=== PATIENT | male | born 1960 | race Caucasian/White ===

== ENCOUNTER 2020-01-05 13:29 | Outpatient (REF) | payer OTHER, SELFPAY ==
--- NOTE | 2020-01-05 13:30 | CT_ITS ---
EXAMINATION: CT CHEST SCREENING CLINICAL INFORMATION: Lung cancer screening COMPARISON: Previous chest CT March 2019 TECHNIQUE: Multidetector volumetric CT imaging of the chest is performed without contrast using low dose technique. Additional 2D coronal and sagittal reformatted images and axial 3D maximum intensity projection (MIP) images are generated on the CT workstation. This CT examination was performed using dose optimization techniques as appropriate, variously including the following: *Automated exposure control *Adjustment of mA and/or kV according to patient size (this includes techniques or standardized protocols for targeted exams where dose is matched to indication/reason for exam; i.e. extremities or head) *Use of iterative reconstruction technique DLP: 55 mGy-cm FINDINGS: LUNGS: There is evidence of severe paraseptal emphysema. There is minimal scarring or subsegmental atelectasis in the right middle lobe. The lungs are otherwise clear. No pulmonary nodule is seen. No endobronchial or endotracheal lesion is seen. There is a small tracheal diverticulum axial image 6 series 3. MEDIASTINUM: There are small mediastinal lymph nodes. No enlarged lymph nodes are seen. The mediastinum is otherwise normal. PLEURA: There is no pleural effusion. No pleural mass or thickening. AXILLA: No lymphadenopathy. UPPER ABDOMEN: There is a 1 cm low-attenuation lesion exophytic to the anterior upper pole of the left kidney that is stable and probably represents a cyst. The gallbladder has been removed. OSSEOUS STRUCTURES: There are mild degenerative changes of the spine. CT/CT lung screening IMPRESSION: Severe paraseptal emphysema. Scarring or subsegmental atelectasis in the right middle lobe. Left renal cyst. ASSESSMENT: Lung-RADS category 1: Negative RECOMMENDATION: Annual low-dose chest CT follow-up recommended.
== END 2020-01-05 13:30 | disposition home or self-care (01) ==
LOC: HO.CT 13:29
PROVIDERS: PCP Nurse Practitioner Family; Visit Provider Surgery
DX: Z87.891 Personal history of nicotine dependence (principal)
CPT/HCPCS: 71250

== ENCOUNTER → 2020-09-08 13:16 | Outpatient (BNVA) | payer OTHER, SELFPAY | PROVIDERS: PCP Nurse Practitioner Family; Referring Provider Nurse Practitioner Family; Visit Provider Surgery | DX: K40.90 Unilateral inguinal hernia, without obstruction or gangrene, not specified as recurrent (principal) | CPT/HCPCS: 99202 ==

== ENCOUNTER 2020-09-19 09:13 | Day surgery (SDC) | payer OTHER, SELFPAY ==
[2020-09-19] VITALS (12 sets, daily range): BP systolic 130–158; BP diastolic 74–90; PULSE 61–74; RESP 6–18; TEMP 36.4–36.8; O2SAT 92–100; BMI 24.4
--- NOTE | 2020-09-19 08:47 | P.CONAN_ITS ---
HPI - Anesthesia Eval Consult details Narrative: 60 yo male patient for Right Inguinal hernia repair PMFSH Active Problems Active Problems: All Active Problems (Updated 08/09/20 @ 16:56 by Rohit santiago [facility]) Right inguinal hernia (Acute) Poison sumac (Acute) Cellulitis (Acute) Neck pain (Acute) Pre-op evaluation (Acute) Past Medical History Medical History COPD (chronic obstructive pulmonary disease) HTN (hypertension) Smoker Family History Family History Father No problems noted. Mother Heart disease Pulmonary embolism History of heart attack Pacemaker Oxygen dependent Brother No problems noted. Brother No problems noted. Brother No problems noted. Sister No problems noted. Sister No problems noted. Daughter No problems noted. Daughter No problems noted. Family history of problems with anesthesia: No Surgical History Surgical History History of back surgery History of carpal tunnel surgery History of knee surgery History of laparoscopic cholecystectomy History of neck surgery History of Problems with Anesthesia: No Social History Social History (Updated 09/19/20 @ 10:59 by Nita Benz) Alcohol intake: current Alcohol intake frequency: a few times a week Patient Tobacco Use Status: Current someday Tobacco user Tobacco use type: Cigarette Years Smoked: 55 Smoked in Last 30 Days: Yes Use of substances other than those prescribed or required for medical reasons: Yes Substance Use Type: Crack/Cocaine and Marijuana Substance Use Type Other:: States last used 5 days ago. States unable to urinate to test. Substance Use Frequency: Weekly Last Used Substance: Days (ago) Last Used Substance Other:: Discussed complications of cocaine use and reaction with anesthesia. Are you DNR?: No Advance Directives: No Advance Directives Information Provided: Yes Narrative Narrative: Discussed complications of cocaine use and anesthetic complications. Patient aware and wishes to proceed. Patient not acutely intoxicated. Will pro ceed. Meds Allergies Allergy/AdvReac Type Severity Reaction Status Date / Time No Known Allergies Allergy Verified 09/19/20 09:19 [No Known Allergies*] Active Medications: Current Medications Generic Name Dose Route Start Last Admin Trade Name Freq PRN Reason Stop Dose Admin Lactated Ringer's 1,000 mls @ 100 mls/hr 09/19/20 09:00 Lr IVCONT .Q10H [facility] Home Medications Medication Instructions Recorded Confirmed Last Taken Type buspirone 15 mg tablet 15 mg PO BID 01/05/20 05/19/20 Unknown History buspirone 7.5 mg tablet 7.5 mg PO BID 01/05/20 05/19/20 Unknown History famotidine 40 mg tablet 40 mg PO DAILY 01/05/20 05/19/20 Unknown History ipratropium 20 mcg-albuterol 100 1 puff INHALATION Q4H 01/05/20 05/19/20 Unknown History mcg/actuation mist for inhalation (Combivent Respimat) ketorolac 0.5 % eye drops drp OPHTHALMIC (EYE) 01/05/20 05/19/20 Unknown History melatonin 5 mg tablet 5 mg PO BEDTIME PRN 01/05/20 05/19/20 Unknown History Exam Exam Date and Time: September 19, 2020 0847 Height,Weight and Vital Signs: Height 5 ft 7 in Weight 70.76 kg Vital Signs Temp Pulse Resp BP Pulse Ox 09/19/20 09:54 98.3 F 65 16 144/80 H 97 Airway Mallampati Class: II TM Dist: >3cm Neck ROM: Full Heart: RRR Lungs: CTAB(Post albuterol nebulizer) Assessment and Plan Assessment Anesthesia Assessment: Anesthesia Plan Discussed and Chart Reviewed Final Anesthetic Review Family History of Problems with Anesthesia: No History of Problems with Anesthesia: No NPO: Yes ASA Class: III Final Preanesthetic Review: No Changes in Pt Med Stat, Meds/Allgs Chart Reviewed, Consent Obtained/Reviewed and Anes Risks/Benef Reviewed Patient Risk: Intermediate Procedure Risk: Low Assessment/Block/Sedation in SS: Assess/Block/Sedation-SS Anesthetic Plan Anesthetic Plan: GA Disposition: Standard PACU
--- NOTE | 2020-09-19 09:43 | PC.NURSE ---
Patient's lung sounds assessed in preop, wheezes throughout, congested cough. Patient has diagnosis of COPD. Light smoker, last cigarette yesterday. SaO2 97% RA. Anesthesia made aware. New order for Nebulizer treatment. Respiratory called and at bedside. Lung sounds assessed post treatment. Lungs clear throughout, no wheezing present.
[2020-09-19] MEDS: Albuterol Sulfate (0.083%) 2.5 MG/3 ML VIAL.NEB INHALE (09:46)
[2020-09-19] MEDS: Lactated Ringers 1,000 ML 100 ML IVCONT (09:55)
--- NOTE | 2020-09-19 10:05 | MHC.SHP ---
Pre-Procedural Eval Section A Date of Service: 09/19/20 The patient is an INPATIENT: No Changes since office visit: Yes Patient answered all questions; No Cold of Flu in the past 2 weeks, No New Medical Problems and No Changes in Medication The History & Physical has been completed within 30 days and I have reviewed it.: Yes Section B Chief Complaint: unilateral inguinal hernia Allergies: Allergies Allergy/AdvReac Type Severity Reaction Status Date / Time No Known Allergies Allergy Verified 09/19/20 09:19 [No Known Allergies*] Plan Diagnosis/Plan: Unchanged I have reviewed the history and physical and performed a pertinent physical examination on my patient. No changes have occurred unless specified.
--- NOTE | 2020-09-19 10:41 | PC.NURSE ---
During preop, patient stated that there has been blood in his urine for years , he has not had this assessed by a doctor. Dr. Benz aware. Patient also stated that he uses cocaine, last time [address] Benz notified and requested a urine toxicology. Dr. Griffith also ordered a Urinalysis as patient has been bleeding when peeing and urine would be obtained anyway. Patient unable to void at this time, ordered fluids wide open. After half of bag administered, patient stated that he could not void and that he felt he would not be able to . Per Dr. Benz okay to proceed with surgery without Urine Tox. Risks discussed with patient at bedside. Dr. Griffith notified that Urinalysis was unable to be obtained.
--- NOTE | 2020-09-19 11:27 | P.OP_ITS ---
Operative Note Operative Note Date of Service: 09/19/20 Narrative: Preoperative diagnosis: Right inguinal hernia Postoperative diagnosis: Same Procedure: Repair of right inguinal hernia Surgeon: Rohit Griffith MD Counselling Psychologist: Tess Mosley PA-C Anesthesia: General LMA Indications for procedure: 60-year-old male patient presenting with complaints of pain in the right groin after lifting a lawnmower. He feels a lump in the lower right groin which increases in size with lifting and straining. On examination the patient is found to have a right inguinal hernia which increases with Valsalva maneuvers. Operative findings:. Indirect right inguinal hernia with sac and lipoma Specimen: Lipoma of the cord and right indirect hernia sac Estimated blood loss: 5 mL Complications: None Procedure details: Patient was brought to the OR and placed in a supine posit ion. After administering general anesthesia the patient's abdomen was prepped with ChloraPrep and draped in a sterile fashion. A surgical time-out was called the consent confirmed. Patient received preoperative antibiotics and Venodyne boots were in place. Local anesthesia consisting of 0.5% Sensorcaine with epinephrine was infiltrated over the right inguinal ligament. Incision was then made in oblique fashion over the inguinal ligament. This carried out through subcutaneous tissue past Radhika's fashion up to the external oblique aponeurosis. Additional local was infiltrated below the external oblique aponeurosis. This was then incised with a scalpel wide with the Metzenbaum scissors. Spermatic cord was then dissected free from the surrounding inguinal canal and retracted using a Carlos drain. The floor of the inguinal canal was examined and no direct hernia was identified. A large lipoma was noted over the cremasteric muscle and dissected down to the internal ring, ligated and excised. This was sent to pathology as a separate specimen. Fibers of the cremasteric muscle were then and an indirect sac was identified. This was dissected down to the internal ring. The sac was then opened and the contents reduced. The sac was then ligated using a 0 Polysorb suture. Sac was then divided above this. This was sent to the specimen. The sac stump was then reduced into the abdominal cavity. Attention was then directed to the direct space which was divided between Allis clamps. The preperitoneal space was then created. This was opened further using an open Ray-Nica sponge. A large PHS mesh was then obtained. The circular underlay was placed into the preperitoneal space and deployed. The overlay was then secured to the pubic tubercle conjoined tendon shelving edge of the inguinal ligament using interrupted 0 Polysorb sutures. A slit was made in the mesh and the mesh were wrapped around the spermatic cord at the internal ring. This was then secu red to the shelving edge of the inguinal ligament using the 0 Polysorb suture. This was felt to be loose enough to allow the tip of an index finger to pass. Wounds were checked for hemostasis. Wounds were irrigated with saline solution and suctioned dry. External oblique aponeurosis was then closed using a running 2 0 Polysorb suture. Radhika's fascia and dermis reapproximated using interrupte d 3-0 Polysorb sutures. Skin was then closed using a running subcuticular 4-0 Polysorb suture. Steri-Strips 2 x 2 gauze and Tegaderm were then applied. The patient tolerated the procedure well. Sponge, instrument, needle counts reported as correct. Patient was transferred to PACU in stable condition.
[2020-09-19] MEDS: fentaNYL citrate/PF 100 MCG/2 ML VIAL 25 MCG IVPUSH ×2 (11:44→12:01)
[2020-09-19] MEDS: oxyCODONE HCl Immed Release 5 MG TABLET 10 MG PO (11:45)
[2020-09-19] MEDS: Acetaminophen 325 MG TABLET 650 MG PO (11:46)
[2020-09-19] MEDS: Ketorolac Tromethamine 15 MG/ML VIAL IVPUSH (11:46)
[2020-09-19 14:14] LABS: Glucose Urine UA NEG (NEG); Leukocyte Esterase Urine NEG (NEG); Nitrite Urine NEG (NEG); Urine Blood NEG (NEG); Urine Ketones NEG (NEG); Urine Protein NEG (NEG-TRACE)
[2020-09-19 14:15] LABS: Appearance Urine CLEAR; Color Urine YELLOW
== END 2020-09-19 13:50 | disposition home or self-care (01) ==
PROVIDERS: PCP Nurse Practitioner Family; Visit Provider Surgery
PROC: (CPT 49505; principal; 2020-09-19 10:50)
DX: K40.90 Unilateral inguinal hernia, without obstruction or gangrene, not specified as recurrent (principal); D17.6 Benign lipomatous neoplasm of spermatic cord; J44.9 Chronic obstructive pulmonary disease, unspecified; I10 Essential (primary) hypertension; F17.210 Nicotine dependence, cigarettes, uncomplicated; F12.90 Cannabis use, unspecified, uncomplicated; F14.90 Cocaine use, unspecified, uncomplicated; Z79.899 Other long term (current) drug therapy
CPT/HCPCS: 49505; 81003; 88302; 88304; C1781; J0690; J1100; J1885; J2250; J2405; J3010

== ENCOUNTER → 2020-10-03 14:35 | Outpatient (BNVA) | payer OTHER, SELFPAY | PROVIDERS: PCP Nurse Practitioner Family; Visit Provider Surgery | DX: Z48.815 Encounter for surgical aftercare following surgery on the digestive system (principal); Z87.19 Personal history of other diseases of the digestive system | CPT/HCPCS: 99212 ==

== ENCOUNTER → 2020-10-11 15:09 | Outpatient (BNVA) | payer OTHER, SELFPAY | PROVIDERS: PCP Nurse Practitioner Family; Referring Provider Nurse Practitioner Family; Visit Provider Surgery | DX: Z48.815 Encounter for surgical aftercare following surgery on the digestive system (principal); R31.9 Hematuria, unspecified | CPT/HCPCS: 99212 ==

== ENCOUNTER 2020-11-02 12:26 | Emergency (ER) | payer OTHER, SELFPAY ==
--- NOTE | ~2020-11-02 | XR_ITS ---
EXAMINATION: XR CHEST CLINICAL INFORMATION: Dyspnea COMPARISON: Chest 07/28/2019 TECHNIQUE: Frontal view of the chest was obtained. FINDINGS: No significant abnormality is noted involving the heart, lungs, mediastinum, bony thorax or soft tissues. XR/XR chest 1V IMPRESSION: Unremarkable chest examination.
[2020-11-02 12:32] VITALS: BP 125/71; PULSE 52; O2SAT 100
--- NOTE | 2020-11-02 12:32 | ED.AMS ---
HPI - Altered Mental Status General Chief Complaint: Syncope Stated Complaint: UNRESPONSIVE @ [facility]RG[facility], RESPONDS TO PAIN Time Seen by Provider: 11/02/20 12:31 Source: patient, EMS and old records reviewed Mode of arrival: EMS Limitations: other (became agitated) History of Present Illness HPI narrative: fainting episode at PCP given narcan though no real response, stable VS with EMS - EMS notes he was agitated, no seizure activity reported MD complaint: decreased responsiveness and other (possible pseudoseizure) Timing confirmed by: caregiver Severity: similar to previous episodes Consistency of symptoms: unknown Context: history of similar presentation Associated symptoms: denies other symptoms Related Data Home Medications Medication Instructions Recorded Confirmed buspirone 15 mg tablet 15 mg PO BID 01/05/20 05/19/20 buspirone 7.5 mg tablet 7.5 mg PO BID 01/05/20 05/19/20 famotidine 40 mg tablet 40 mg PO DAILY 01/05/20 05/19/20 ipratropium 20 mcg-albuterol 100 1 puff INHALATION Q4H 01/05/20 05/19/20 mcg/actuation mist for inhalation (Combivent Respimat) ketorolac 0.5 % eye drops drp OPHTHALMIC (EYE) 01/05/20 05/19/20 melatonin 5 mg tablet 5 mg PO BEDTIME PRN 01/05/20 05/19/20 Previous Rx's Medication Instructions Recorded albuterol sulfate 90 mcg/actuation 2 puff PO Q4H PRN #8.5 g 02/26/20 aerosol inhaler gabapentin 400 mg capsule 400 mg PO BID #60 cap 04/28/20 gabapentin 300 mg capsule 300 mg PO BEDTIME 30 Days #30 cap 06/01/20 doxycycline hyclate 100 mg tablet 100 mg PO BID 7 Days #14 tab 08/09/20 prednisone 10 mg tablet 10 mg PO DAILY 10 Days #45 tab 08/09/20 metoprolol succinate 25 mg 25 mg PO DAILY #30 tab 08/25/20 tablet,extended release 24 hr pantoprazole 40 mg tablet,delayed 40 mg PO DAILY #30 tab 08/25/20 release sertraline 100 mg tablet 150 mg PO DAILY #45 tab 08/25/20 montelukast 10 mg tablet 10 mg PO DAILY #30 tab 09/08/20 carisoprodol 250 mg tablet (Soma) 250 mg PO TID PRN #30 tab 10/03/20 diltiazem HCl 120 mg 120 mg PO QAM #30 cap 10/04/20 capsule,extended release 24 hr, controlled (DILT-XR) oxycodone 5 mg tablet 5 mg PO Q6H PRN #30 tab 10/11/20 Allergies Allergy/AdvReac Type Severity Reaction Status Date / Time No Known Allergies Allergy Verified 11/02/20 11:32 [No Known Allergies*] Review of Systems Review of Systems: ROS unable to be obtained due to being uncooperative [facility] Past Medical History Attestation statement: The following information was validated with the patient. Medical History COPD (chronic obstructive pulmonary disease) HTN (hypertension) Smoker Surgical History History of back surgery History of carpal tunnel surgery History of knee surgery History of laparoscopic cholecystectomy History of neck surgery Family History Family History Father No problems noted. Mother Heart disease Pulmonary embolism History of heart attack Pacemaker Oxygen dependent Brother No problems noted. Brother No problems noted. Brother No problems noted. Sister No problems noted. Sister No problems noted. Daughter No problems noted. Daughter No problems noted. Social History Social History Alcohol intake: current Alcohol intake frequency: a few times a week Patient Tobacco Use Status: Current someday Tobacco user Tobacco use type: Cigarette Years Smoked: 55 Substance Use Type: Crack/Cocaine and Marijuana Advance Directives: No Advance Directives Information Provided: No Physical Exam Vital Signs: Vital Signs: Body Mass Index 25.8 Appearance: Alert. Oriented X3. No acute distress. Iniitally anxious then when asked about his prior visits for same presentation he became agitated, defensive and threatening to staff Eyes: Pupils equal, round and reactive to light. ENT: Pharynx normal. Neck: Normal inspection. Neck supple. CVS: Normal heart rate and rhythm. Pulses normal. Respiratory: No respiratory distress. Breath sounds very faint end exp wheezes Abdomen: Soft and non-tender. Skin: Skin warm and dry. Normal skin color. Normal skin turgor. Extremities: No lower extremity edema. No calf ttp Neuro: Oriented X 3. No motor deficit. No sensory deficit. Course Course Course Narrative: patient seen eating in the cafeteria after he eloped and had a steady gait MDM - Altered Mental Status MDM Narrative Medical decision making narrative: 60 yo male with hx of anxiety, pseudo-seizures, COPD here with episode at PCP - possible syncope vs pseudoseizure, also given narcan though not pinpoint and he didn't wake up really or change, EMS notes he was agitated with them as well. He is well known to us for passing out episodes and then violent behavior. He has been removed due to his violence from multiple facilities in the past. On arrival no trauma, GCS 15, at his baseline. When asked about his prior workup for these episodes and that they have found no cause he became visibly upset and proceeded to threaten staff and then walked out of the department. I suspect his issue today is again one of his anxiety related episodes I do not suspect opiate overdose. He is free to walk out given steagy gait, GCS 15. Discharge Plan Discharge Clinical Impression: Syncope Qualifiers: Syncope type: unspecified Qualified Code(s): R55 - Syncope and collapse Patient Disposition: Elopement Prescriptions: No Action albuterol sulfate 90 mcg/actuation HFA aerosol inhaler 2 puff PO Q4H PRN (Reason: bronchospasm) Qty: 8.5 RF: 4 gabapentin 400 mg capsule 400 mg PO BID Qty: 60 RF: 1 gabapentin 300 mg capsule 300 mg PO BEDTIME 30 Days Qty: 30 RF: 0 sertraline 100 mg tablet 150 mg PO DAILY Qty: 45 RF: 3 metoprolol succinate 25 mg tablet extended release 24 hr 25 mg PO DAILY Qty: 30 RF: 3 pantoprazole 40 mg tablet,delayed release (DR/EC) 40 mg PO DAILY Qty: 30 RF: 3 montelukast 10 mg tablet 10 mg PO DAILY Qty: 30 RF: 3 diltiazem HCl [DILT-XR] 120 mg capsule,ext.rel 24h degradable 120 mg PO QAM Qty: 30 RF: 2 ketorolac 0.5 % drops ophthalmic (eye) RF: 0 famotidine 40 mg tablet 40 mg PO DAILY RF: 0 buspirone 7.5 mg tablet 7.5 mg PO BID RF: 0 buspirone 15 mg tablet 15 mg PO BID RF: 0 Combivent Respimat 20-100 mcg/actuation mist 1 puff inhalation Q4H RF: 0 melatonin 5 mg tablet 5 mg PO BEDTIME PRNRF: 0 prednisone 10 mg tablet 10 mg PO DAILY 10 Days Qty: 45 RF: 0 doxycycline hyclate 100 mg tablet 100 mg PO BID 7 Days Qty: 14 RF: 0 oxycodone 5 mg tablet 5 mg PO Q6H PRN (Reason: pain) Qty: 30 RF: 0 carisoprodol [Soma] 250 mg tablet 250 mg PO TID PRN (Reason: muscle pain) Qty: 30 RF: 0 Interventions: ED Discharge Assessment Last Done: 11/02/20 12:48 Discharge Date/Time: 11/02/20 12:49
[2020-11-02 12:38] VITALS: BMI 25.8
--- NOTE | 2020-11-02 12:47 | PC.NURSE ---
Patient becoming verbally aggressive with staff. reporting he is going to leave. Escorted out by security.
== END 2020-11-02 12:49 | disposition left against medical advice (07) ==
PROVIDERS: Emergency Provider Emergency Medicine; PCP Nurse Practitioner Family
DX: R55 Syncope and collapse (principal); Z79.899 Other long term (current) drug therapy; F17.210 Nicotine dependence, cigarettes, uncomplicated; Z71.6 Tobacco abuse counseling
CPT/HCPCS: 71045; 99282; 99283

== ENCOUNTER 2020-11-11 09:30 | Outpatient (REF) | payer OTHER, SELFPAY ==
--- NOTE | ~2020-11-11 | XR_ITS ---
EXAMINATION: XR KNEE, LEFT CLINICAL INFORMATION: 60-year-old male patient with sprain of the left knee. COMPARISON: None TECHNIQUE: AP and lateral weightbearing, tunnel, and sunrise views of the left knee. FINDINGS: Bones and soft tissues are normal. No fracture or joint effusion. Alignment is anatomic. There is very mild joint space narrowing of the medial femoral tibial compartment. No abnormal soft tissue calcification. XR/XR knee LT 3V IMPRESSION: Mild joint space narrowing of the medial compartment.
[2020-11-11 10:31] LABS: Blood Urea Nitrogen 12 mg/dL (9-16); Estimated Glomerular Filt Rate > 60
== END 2020-11-11 09:31 | disposition home or self-care (01) ==
LOC: HO.XRAY 09:30
PROVIDERS: Absent Provider Internal Medicine; PCP Nurse Practitioner Family; Visit Provider Surgery
DX: S83.92XD Sprain of unspecified site of left knee, subsequent encounter (principal); R10.31 Right lower quadrant pain; R31.9 Hematuria, unspecified
CPT/HCPCS: 36415; 73562; 82565; 84520

== ENCOUNTER 2020-11-14 12:17 | Outpatient (REF) | payer OTHER, SELFPAY ==
--- NOTE | ~2020-11-14 | CT_ITS ---
EXAMINATION: CT ABDOMEN AND PELVIS WITH CONTRAST CLINICAL INFORMATION: Right lower quadrant pain. COMPARISON: Previous outside CT of the abdomen and pelvis February 2017 TECHNIQUE: Multidetector volumetric images were obtained from the superior aspect of the liver through the pubic symphysis following administration 85 mL of Omnipaque 350 intravenous contrast. Sagittal and coronal reformatted images were obtained on the technologist's workstation. Oral contrast: Yes This CT examination was performed using dose optimization techniques as appropriate, variously including the following: *Automated exposure control *Adjustment of mA and/or kV according to patient size (this includes techniques or standardized protocols for targeted exams where dose is matched to indication/reason for exam; i.e. extremities or head) *Use of iterative reconstruction technique DLP: 357 mGy-cm FINDINGS: LUNG BASES: The visualized lung bases are unremarkable. LIVER, GALLBLADDER, AND BILIARY TREE: The liver is normal in size, shape, and attenuation. No focal hepatic lesion or biliary ductal dilatation is present. The gallbladder has been removed. PANCREAS: There is a 2.5 x 3 cm cyst in the uncinate process of the head of the pancreas. This is increased from 1.6 x 2 cm on February 2017 exam. The pancreas is otherwise unremarkable. SPLEEN: Unremarkable. ADRENAL GLANDS: Unremarkable. KIDNEYS AND URETERS: There is a 1 cm cyst exophytic to the anterior upper pole of the left kidney that is unchanged. No imaging follow-up. The kidneys are otherwise unremarkable. BLADDER: Unremarkable. GASTROINTESTINAL TRACT: The small and large bowel are unremarkable. The appendix is unremarkable. ABDOMINAL WALL: There is soft tissue thickening seen in the right inguinal region. There is a linear density that extends to the skin. This may represent postsurgical change. Correlation with clinical history is recommended. LYMPH NODES: Normal. VASCULAR: Unremarkable. PELVIC VISCERA: Unremarkable. OSSEOUS STRUCTURES: There are degenerative changes of the spine. There is increased subchondral sclerosis in the femoral heads questionable for AVN. CT/CT abdomen pelvis w con IMPRESSION: Interval increase in the now 2.5 x 3 cm cyst in the uncinate process of the head of the pancreas. Follow-up MR of the pancreas with contrast and MRCP recommended. Stable small left renal cyst. Question postsurgical changes in the right inguinal region. Bilateral femoral head AVN.
[2020-11-14] MEDS: iohexoL 350 MG/ML 100 ML INFUS..BTL IV (15:34)
== END 2020-11-14 12:18 | disposition home or self-care (01) ==
LOC: HO.CT 12:17
PROVIDERS: Visit Provider Surgery
DX: R10.31 Right lower quadrant pain (principal); R31.9 Hematuria, unspecified
CPT/HCPCS: 74177; Q9967

== ENCOUNTER 2020-12-13 18:03 | Outpatient (REF) | payer OTHER, SELFPAY ==
--- NOTE | ~2020-12-13 | MR_ITS ---
EXAMINATION: MR ABDOMEN WITHOUT AND WITH CONTRAST CLINICAL INFORMATION: Pancreatic cyst COMPARISON: Previous CT of the abdomen and pelvis most recent 11/14/2020 TECHNIQUE: MR abdomen was performed without and with use of 7.5 mL intravenous Gadavist gadolinium contrast. Postcontrast images are performed in multiphase dynamic sequences. Imaging was performed in 3 planes. FINDINGS: LUNG BASES: The visualized lung bases are unremarkable. LIVER, GALLBLADDER, AND BILIARY TREE: The liver is normal in size, smooth in contour, and normal in signal. No focal hepatic lesion or biliary ductal dilatation is present. The gallbladder is unremarkable with no evidence of gallbladder wall thickening, or obvious pericholecystic inflammatory changes. PANCREAS: There is a 2.9 x 3.3 cm cyst uncinate process of the head of the pancreas. This is low signal on T1-weighted sequences, high signal on T2-weighted sequences and demonstrates no evidence of enhancement. This demonstrates a single thin septation without evidence of enhancement. This has 2 small low signal on T2-weighted sequences areas. No corresponding signal abnormality is seen on T1-weighted sequences. This is increased in size from prior CT scans, for example measuring 1.6 x 2 cm, February 2017. Main pancreatic duct is normal. The pancreas is otherwise normal in signal and enhancement. SPLEEN: Normal. ADRENAL GLANDS: Normal. KIDNEYS AND URETERS: The kidneys are normal in size, shape, and enhance symmetrically. There is a small simple cyst exophytic to the upper pole of the left kidney. No hydronephrosis. No perinephric stranding. GASTROINTESTINAL TRACT: No bowel obstruction. No ascites or fluid collection. ABDOMINAL WALL: No significant hernia is appreciated. LYMPH NODES: No lymphadenopathy. VASCULAR: Unremarkable. OSSEOUS STRUCTURES: Marrow signal normal. There is mild degenerative disc disease of the lower lumbar spine. MR/MR abdomen wo/w con IMPRESSION: 2.9 x 3.3 cm complex cyst in the uncinate process of the head of the pancreas. This is increased in size from prior CT scans. Possible side branch IPMN and cystadenoma should be considered.
== END 2020-12-13 18:04 | disposition home or self-care (01) ==
LOC: HO.MRI 18:03
PROVIDERS: Visit Provider Surgery
DX: K86.2 Cyst of pancreas (principal)
CPT/HCPCS: 74183; A9585

== ENCOUNTER → 2020-12-14 15:35 | Outpatient (BNVA) | payer OTHER, SELFPAY | PROVIDERS: PCP Nurse Practitioner Family; Visit Provider Nurse Practitioner Family | DX: R10.31 Right lower quadrant pain (principal); M79.18 Myalgia, other site; J44.9 Chronic obstructive pulmonary disease, unspecified; I10 Essential (primary) hypertension; F17.200 Nicotine dependence, unspecified, uncomplicated; F12.10 Cannabis abuse, uncomplicated; F14.10 Cocaine abuse, uncomplicated; Z90.49 Acquired absence of other specified parts of digestive tract; Z79.899 Other long term (current) drug therapy | CPT/HCPCS: 99202 ==

== ENCOUNTER → 2020-12-20 14:51 | Outpatient (BNVA) | payer OTHER, SELFPAY | PROVIDERS: PCP Nurse Practitioner Family; Referring Provider Nurse Practitioner Family; Visit Provider Surgery | DX: D49.0 Neoplasm of unspecified behavior of digestive system (principal); R10.31 Right lower quadrant pain | CPT/HCPCS: 99212 ==

== ENCOUNTER 2022-02-03 13:21 | Emergency (ER) | payer OTHER, SELFPAY ==
--- NOTE | ~2022-02-03 | XR_ITS ---
EXAMINATION: XR CHEST CLINICAL INFORMATION: COPD exacerbation COMPARISON: 11/02/2020 TECHNIQUE: 2 views of the chest were obtained. FINDINGS: Low lung volumes. There is subtle hazy lower lobe opacity seen posteriorly on the lateral view, likely corresponding to the retrocardiac left lower lobe on the frontal radiograph. No dense lobar consolidation. No pleural effusion or pneumothorax. Cardiomediastinal silhouette unchanged. XR/XR chest 2V IMPRESSION: Subtle hazy left lower lobe opacity, suggesting atelectasis or possible interstitial pneumonitis.
--- NOTE | 2022-02-03 13:28 | ED_ITS ---
HPI - SOB/Dyspnea General Chief Complaint: Dyspnea Stated Complaint: SOB Time Seen by Provider: 02/03/22 13:26 Source: patient Mode of arrival: EMS Limitations: no limitations History of Present Illness HPI Narrative: Last week fell down stairs was seen at [facility] and had a CT of abdomen, today with increasing wheezing, EMS gave a duoneb and solumedrol. MD elicited complaint: shortness of breath Pertinent past history: COPD Onset (ago): day(s) Context: recent illness and anxiety Timing: constant Severity: moderate Exacerbating factors: lying flat and exertion Related Data Home Medications Medication Instructions Recorded Confirmed ipratropium 20 mcg-albuterol 100 1 puff inhalation Q4H 01/05/20 07/24/21 mcg/actuation mist for inhalation (Combivent Respimat) melatonin 5 mg tablet 5 mg PO BEDTIME PRN 01/05/20 07/24/21 omeprazole 40 mg capsule,delayed 40 mg PO DAILY 12/14/20 07/24/21 release acetaminophen 325 mg tablet mg PO 01/26/21 07/24/21 acetaminophen 325 mg tablet 650 mg PO Q6H PRN 01/26/21 07/24/21 (Tylenol) budesonide-formoterol HFA 160 inhalation 01/26/21 07/24/21 mcg-4.5 mcg/actuation aerosol inhaler (Symbicort) famotidine 40 mg tablet 40 mg PO DAILY 01/26/21 07/24/21 ipratropium 0.5 mg-albuterol 3 mg ml inhalation 01/26/21 07/24/21 (2.5 mg base)/3 mL nebulization soln lidocaine 5 % topical patch 1 patch topical DAILY 01/26/21 07/24/21 melatonin 3 mg tablet mg PO 01/26/21 07/24/21 methocarbamol 750 mg tablet 750 mg PO TID 01/26/21 07/24/21 tiotropium bromide 18 mcg capsule 1 cap inhalation DAILY 01/26/21 07/24/21 with inhalation device (Spiriva with HandiHaler) Previous Rx's Medication Instructions Recorded albuterol sulfate 90 mcg/actuation 2 puff PO Q4H PRN bronchospasm 02/26/20 aerosol inhaler #8.5 grams tizanidine 2 mg tablet 2 mg PO BEDTIME PRN muscle 12/14/20 spasticity #30 tabs sildenafil 50 mg tablet 50 mg PO DAILY PRN sexual activity 01/03/21 7 days #7 tabs sildenafil 25 mg tablet 25 mg PO DAILY PRN sexual activity 05/22/21 10 days #10 tabs montelukast 10 mg tablet 10 mg PO DAILY #30 tabs 05/23/21 cyanocobalamin (vitamin B-12) 500 500 mcg PO DAILY 90 days #90 tabs 07/24/21 mcg tablet metoprolol succinate 25 mg 25 mg PO DAILY #90 tabs 07/24/21 tablet,extended release 24 hr pantoprazole 40 mg tablet,delayed 40 mg PO DAILY #90 tabs 07/24/21 release aspirin 81 mg tablet,delayed 81 mg PO DAILY #90 tabs 09/07/21 release diltiazem HCl 120 mg 120 mg PO QAM #30 caps 12/23/21 capsule,extended release 24 hr, controlled (DILT-XR) nystatin 100,000 unit/mL oral 5 ml PO QID 10 days #200 mL 01/20/22 suspension gabapentin 400 mg capsule 400 mg PO BID #60 caps 02/03/22 prednisone 20 mg tablet 60 mg PO DAILY #12 tabs 02/03/22 sertraline 100 mg tablet 150 mg PO DAILY #135 tabs 02/03/22 Allergies Allergy/AdvReac Type Severity Reaction Status Date / Time No Known Allergies Allergy Verified 07/24/21 14:45 [No Known Allergies*] Review of Systems Review of Systems: Yes all other systems are reviewed and are negative Cardiovascular: Cardiovascular: Reports chest pain, Reports dyspnea and Reports dyspnea on exertion Respiratory: Respiratory: Reports cough, Reports dyspnea, Reports dyspnea on exertion and Reports wheezing Neurologic: Denies Sensory deficit (Neuro) Allergic/Immunologic: Allergic/Immunologic: Reports wheezing PMFSH Past Medical History Medical History COPD (chronic obstructive pulmonary disease) HTN (hypertension) Smoker Surgical History History of back surgery History of carpal tunnel surgery History of knee surgery History of laparoscopic cholecystectomy History of neck surgery Family History Family History Father No problems noted. Mother Heart disease Pulmonary embolism History of heart attack Pacemaker Oxygen dependent Brother No problems noted. Brother No problems noted. Brother No problems noted. Sister No problems noted. Sister No problems noted. Daughter No problems noted. Daughter No problems noted. Social History Social History Alcohol intake: current Alcohol intake frequency: a few times a week Patient Tobacco Use Status: Former Tobacco user Tobacco use type: Cigarette Years Smoked: 55 Smoked in Last 30 Days: Yes Second Hand Smoke Exposure: Yes Use of substances other than those prescribed or required for medical reasons: Yes Substance Use Type: Amphetamines and Crack/Cocaine Advance Directives: No Current occupational status: employed Cognitive needs: No Hearing needs: No Vision needs: No Physical Exam Vital Signs: Vital Signs: Last Vital Signs Temp 98.4 F 02/03/22 15:47 Pulse 82 02/03/22 15:47 Resp 16 02/03/22 15:47 BP 145/65 H 02/03/22 15:47 Pulse Ox 96 02/03/22 15:47 O2 Del Method 02/03/22 15:47 BMI result Body Mass Index 26.4 Const: Other: coughing and wheezing Nutritional Appearance: average body habitus Orientation/consciousness: oriented to person and patient oriented x3 Limitations: no limitations HEENT: Head: Yes normal to inspection Ears: external ears normal General nose exam: Normal external nose present Mouth: Normal oral and palatal mucosa present and oropharynx normal Throat: Yes posterior oropharynx normal Eyes: General: appearance normal, both eyes and all related structures Neck: Other: supple Neck: Yes normal visual inspection Chest: Chest palpation & inspection: normal inspection of the chest Resp: Other: diffuse wheezing Cardio: Jugular venous distension: no JVD Rate: regular rate Rhythm: regular rhythm Heart sounds: S1 normal heart sound present and S2 normal heart sound present GI: Inspection: Yes normal to inspection Palpation (GI): Soft to palpation, nontender and No hepatosplenomegaly present Auscultation: normal bowel sounds : General: Yes no CVA tenderness Back/Spine/Pelvis: Back: no CVA tenderness Skin: General skin exam: no rashes or lesions noted Neuro: General: oriented to person and patient oriented x3 Cranial nerves: Yes CN's II-XII intact bilaterally Motor exam (neuro): 5/5 motor strength present throughout Sensory Exam: No Sensory deficit (Neuro) Extrem: General: Yes normal to inspection Psych: Appearance: grossly normal Course Reevaluation(s) Reevaluation #1: finished treatment still wheezing Time: 15:01 Reevaluation #2: patient improved will dc home Time: 15:59 Medications Administered Discontinued Medications Generic Name Dose Route Start Last Admin Trade Name Fran PRN Reason Stop Dose Admin Acetaminophen 975 mg 02/03/22 15:30 02/03/22 15:36 Acetaminophen 325 Mg Tablet PO 02/03/22 15:31 975 mg ONCE ONE Administration Albuterol Sulfate 5 mg/ 7.5 mg 02/03/22 13:31 02/03/22 14:27 Albuterol Sulfate 2.5 mg INHALE 02/03/22 13:32 7.5 mg ONCE ONE Administration Albuterol/Ipratropium 3 ml 02/03/22 15:38 02/03/22 16:00 Albuterol/Iprat 2.5/0.5mg 3 Ml Ampul.Neb INHALE 02/03/22 15:39 3 ml ONCE ONE Administration Ketorolac Tromethamine 30 mg 02/03/22 14:11 02/03/22 14:15 Ketorolac Tromethamine 30 Mg/Ml Vial IVPUSH 02/03/22 14:12 30 mg ONCE ONE Administration Medical Decision Making Differential Diagnosis COPD, pneumonia, PTX, and viruses all considered Lab Data Result Diagrams: 02/03/22 13:35 02/03/22 14:34 Labs: Lab Results 02/03/22 02/03/22 02/03/22 Range/Units 13:35 13:35 14:34 WBC 9.8 (4.8-10.8) X10*3/uL RBC 4.44 L (4.60-5.80) X10*6/uL Hgb 14.1 (14.0-18.0) g/dl Hct 41.1 L (42.0-52.0) % MCV 92.6 (80.0-98.0) fL MCH 31.8 (27.0-33.0) pg MCHC 34.3 (31.0-36.0) g/dl RDW 13.5 (11.0-16.0) % Plt Count 351 (160-400) X10*3/uL MPV 9.8 (9.4-12.4) fL Immature Gran % (Auto) 0.3 (0.0-0.4) % Neut % (Auto) 65.9 (45-73) % Lymph % (Auto) 24.3 (20-40) % Taylor % (Auto) 7.9 (2-11) % Eos % (Auto) 1.0 (0-4) % Baso % (Auto) 0.6 (0-2) % Lymph # (Auto) 2.4 (1.2-4.9) X10*3/uL Taylor # (Auto) 0.8 (0.1-1.2) X10*3/uL Eos # (Auto) 0.1 (0.0-0.4) X10*3/uL Baso # (Auto) 0.1 (0.0-0.2) X10*3/uL Abs Immat Gran (auto) 0.03 (0.00-0.03) X10*3/uL Absolute Neuts (auto) 6.4 (2.0-8.3) x10*3/uL Absolute Nucleated RBC 0.000 (0.0-0.012) X10*3/uL Nucleated RBC % (auto) 0.0 (0.0-0.2) /100WBC Sodium 137 (135-145) mmol/L Potassium 4.3 (3.3-5.1) mmol/L Chloride 107 (96-108) mmol/L Carbon Dioxide 20 L (22-29) mmol/L Anion Gap 14 (12-20) BUN 9 (9-16) mg/dL Creatinine 0.76 (0.5-1.4) mg/dL Estim Creat Clear Calc 98.7 Estimated GFR > 60 Random Glucose 97 (60-115) mg/dL Calcium 9.5 (8.4-10.2) mg/dL Influenza Type A (PCR) NEGATIVE (Negative) Influenza Type B (PCR) NEGATIVE (Negative) RSV RNA Qual (PCR) NEGATIVE (Negative) SARS-CoV-2 RNA (RT-PCR) NEGATIVE (Negative) Independent Interpretation I performed an independent interpretation of an: Plain X-Ray (CXR interpreted by me, no PTX no infiltrate) Discharge Plan Discharge Clinical Impression: COPD exacerbation Patient Disposition: Home, Self-Care Instructions: COPD (Chronic Obstructive Pulmonary Disease) (ED) Prescriptions: New prednisone 20 mg tablet 60 mg PO DAILY Qty: 12 0RF No Action albuterol sulfate 90 mcg/actuation HFA aerosol inhaler 2 puff PO Q4H PRN (Reason: bronchospasm) Qty: 8.5 4RF montelukast 10 mg tablet 10 mg PO DAILY Qty: 30 3RF aspirin 81 mg tablet,delayed release (DR/EC) 81 mg PO DAILY Qty: 90 0RF diltiazem HCl [DILT-XR] 120 mg capsule,ext.rel 24h degradable 120 mg PO QAM Qty: 30 2RF nystatin 100,000 unit/mL suspension 5 ml PO QID 10 Days Qty: 200 0RF Rx Instructions: swish and swallow gabapentin 400 mg capsule 400 mg PO BID Qty: 60 0RF sertraline 100 mg tablet 150 mg PO DAILY Qty: 135 1RF Combivent Respimat 20-100 mcg/actuation mist 1 puff inhalation Q4H melatonin 5 mg tablet 5 mg PO BEDTIME PRN sildenafil 50 mg tablet 50 mg PO DAILY PRN (Reason: sexual activity) 7 Days Qty: 7 0RF Rx Instructions: administer 30 minutes to 4 hours before activity cyanocobalamin (vitamin B-12) 500 mcg tablet 500 mcg PO DAILY 90 Days Qty: 90 0RF metoprolol succinate 25 mg tablet extended release 24 hr 25 mg PO DAILY Qty: 90 1RF pantoprazole 40 mg tablet,delayed release (DR/EC) 40 mg PO DAILY Qty: 90 1RF Spiriva with HandiHaler 18 mcg capsule, w/inhalation device 1 cap inhalation DAILY acetaminophen [Tylenol] 325 mg tablet 650 mg PO Q6H PRN lidocaine 5 % adhesive patch,medicated 1 patch topical DAILY acetaminophen 325 mg tablet PO famotidine 40 mg tablet 40 mg PO DAILY methocarbamol 750 mg tablet 750 mg PO TID melatonin 3 mg tablet PO ipratropium-albuterol 0.5 mg-3 mg(2.5 mg base)/3 mL solution for nebulization inhalation budesonide-formoterol [Symbicort] 160-4.5 mcg/actuation HFA aerosol inhaler inhalation sildenafil 25 mg tablet 25 mg PO DAILY PRN (Reason: sexual activity) 10 Days Qty: 10 0RF Rx Instructions: administer 30 minutes to 4 hours before activity omeprazole 40 mg capsule,delayed release(DR/EC) 40 mg PO DAILY tizanidine 2 mg tablet 2 mg PO BEDTIME PRN (Reason: muscle spasticity) Qty: 30 0RF Referrals: Rohit Mendez, [employer] [Primary Care Provider] - Interventions: ED Discharge Assessment Last Done: 02/03/22 16:05 Discharge Date/Time: 02/03/22 16:09
[2022-02-03 13:37] VITALS: BP 170/84; PULSE 60; PULSE 64; RESP 21; TEMP 36.8; O2SAT 97; O2SAT 99; BMI 26.4
[2022-02-03 13:41] LABS: MANUAL DIFF FLAG NO
[2022-02-03 13:43] LABS: Basophils Absolute Auto 0.1 X10*3/uL (0.0-0.2); Basophils Percent Auto 0.6 % (0-2); Eosinophils Absolute Auto 0.1 X10*3/uL (0.0-0.4); Hematocrit 41.1 % (42.0-52.0); Hemoglobin 14.1 g/dl (14.0-18.0); Imm Gran Abs Auto 0.03 X10*3/uL (0.00-0.03); Imm Gran Pct Auto 0.3 % (0.0-0.4); Lymphocytes Absolute Auto 2.4 X10*3/uL (1.2-4.9); Lymphocytes Percent Auto 24.3 % (20-40); Mean Corpuscular HGB Conc 34.3 g/dl (31.0-36.0); Mean Corpuscular Hemoglobin 31.8 pg (27.0-33.0); Mean Corpuscular Volume 92.6 fL (80.0-98.0); Mean Platelet Volume 9.8 fL (9.4-12.4); Monocytes Absolute Auto 0.8 X10*3/uL (0.1-1.2); Monocytes Percent Auto 7.9 % (2-11); Neutrophils Absolute Auto 6.4 x10*3/uL (2.0-8.3); Neutrophils Percent Auto 65.9 % (45-73); Platelet Count 351 X10*3/uL (160-400); Red Blood Count 4.44 X10*6/uL (4.60-5.80); Red Cell Distribution Width 13.5 % (11.0-16.0); White Blood Count 9.8 X10*3/uL (4.8-10.8)
[2022-02-03 14:07] VITALS: BP 168/78; PULSE 58; RESP 22; TEMP 36.9; O2SAT 98
[2022-02-03] MEDS: Ketorolac Tromethamine 30 MG/ML VIAL IVPUSH (14:15)
[2022-02-03] MEDS: Albuterol Sulfate 5 MG, Albuterol Sulfate (0.083%) 2.5 MG 7.5 MG INHALE (14:27)
[2022-02-03 14:28] VITALS: PULSE 84; RESP 18; O2SAT 97
[2022-02-03 14:38] LABS: Influenza A PCR NEGATIVE (Negative); Influenza B PCR NEGATIVE (Negative); Resp Syncy Virus RNA Qual PCR NEGATIVE (Negative); SARS COV2 PCR INHOUSE NEGATIVE (Negative)
[2022-02-03 15:00] LABS: Anion Gap 14 (12-20); Blood Urea Nitrogen 9 mg/dL (9-16); Calcium 9.5 mg/dL (8.4-10.2); Carbon Dioxide 20 mmol/L (22-29); Chloride 107 mmol/L (96-108); Creatinine Clr Calc Pharmacy 98.7; Estimated Glomerular Filt Rate > 60; Glucose Random 97 mg/dL (60-115); Potassium 4.3 mmol/L (3.3-5.1); Sodium 137 mmol/L (135-145)
[2022-02-03] MEDS: Acetaminophen 325 MG TABLET 975 MG PO (15:36)
[2022-02-03 15:47] VITALS: BP 145/65; PULSE 82; RESP 16; TEMP 36.9; O2SAT 96
--- NOTE | 2022-02-03 15:49 | MHC.EDTECH ---
1600 rounding done ,vs taken ,pt said he was hungry gram crackers and symone leslie given .
[2022-02-03] MEDS: Albuterol/Iprat 2.5/0.5MG 3 ML AMPUL.NEB INHALE (16:00)
== END 2022-02-03 16:09 | disposition home or self-care (01) ==
PROVIDERS: Emergency Provider Emergency Medicine; PCP Nurse Practitioner Family
DX: J44.1 Chronic obstructive pulmonary disease with (acute) exacerbation (principal); I10 Essential (primary) hypertension; Z20.822 Contact with and (suspected) exposure to COVID-19; Z87.891 Personal history of nicotine dependence
CPT/HCPCS: 0241U; 36415; 71046; 80048; 85025; 94640; 96374; 99284; J1885

== ENCOUNTER → 2022-04-30 09:57 | Outpatient (BNVA) | payer OTHER, SELFPAY | PROVIDERS: PCP Nurse Practitioner Family; Visit Provider Physician Assistant | DX: S86.111A Strain of other muscle(s) and tendon(s) of posterior muscle group at lower leg level, right leg, initial encounter (principal) | CPT/HCPCS: 99202 ==

== ENCOUNTER → 2022-07-09 10:25 | Outpatient (BNVA) | payer OTHER, SELFPAY | PROVIDERS: PCP Nurse Practitioner Family; Visit Provider Physician Assistant | DX: S86.111A Strain of other muscle(s) and tendon(s) of posterior muscle group at lower leg level, right leg, initial encounter (principal) | CPT/HCPCS: 99212 ==

== ENCOUNTER 2022-08-16 10:34 | Outpatient (AMB) | payer OTHER, SELFPAY ==
[2022-08-16 10:39] VITALS: BP 150/88; PULSE 72; O2SAT 96; BMI 28.7
--- NOTE | 2022-08-16 10:39 | A.OFFPC_ITS ---
Vital Signs 08/16/22 10:39 Height 5 ft 7 in Weight 183 lb 4 oz BMI 28.7 BP 150/88 H Blood Pressure Location Lt brachial Position Sitting Pulse 72 Pulse Source Pulse Oximeter Pulse Oximetry (%) 96 Oxygen Delivery Method Room Air Intake Visit Reasons: hospital dis Allergies No Known Allergies [No Known Allergies*] Allergy (Verified 08/16/22 10:42) Tobacco use date assessed: 08/16/22 Dental Screening Dental Screen Date: 08/16/22 Did you have a dental visit in the last 12 months?: No Did you have a dental problem in the last 6 months where you did not have access to dental care?: Yes Was dental information given to patient?: Patient has dentist HPI hospital dis HPI Details Pt was seen in the ER on 07/18 c/o black stools after colonoscopy, an episode of coffee ground emesis, dizziness, weakness, chest pain, cough, wheezing, shortness of breath, and EMMANUEL. Labs were WNL. Chest xr showed chronic changes, nothing acute. CT of brain/cervical spine was WNL. CT of the abdomen showed chronic cyst associated with third portion of the duodenum has increased in size and will need GI consult. Pt requested admission as he was not comfortable going home. He was given a breathing treatment, magnesium, and robitussin with codeine. Pt had an episode of blood-tinged vomit on 07/19, no obstruction. Rapid response was called on 07/19 while getting abdominal xr due to a coughing episode causing severe respiratory distress and shaking of extremities. COPD was treated with solumedrol, duonebs, pulmicort neb, and PO azithromycin for inflammation. Pt had ongoing diarrhea, stool studies including cdiff were negative. Pt was transferred to [place] for further GI workup. Abdominal xr showed no dilated loops of small bowel, scattered stool and air throughout colon and rectum, mild stool burden, cholecystectomy clips. MRI of abdomen showed complex cyst seen in the inferior most aspect of the uncinate process of the pancreas, measures 4.3 x 3.1cm, contains dependent debris/filling defects but there is no abnormal enhancement, septation, or enhancing wall nodularity to this cyst, no adjacent inflammatory changes in adjacent pancreatic parenchymal or peripancreatic tissue, the pancreatic duct is not dilated, otherwise no suspicious or worrisome features appreciated, cyst has shown slow progressive growth over time when compared to oldest available CT, etiology of this uncertrain, could represent a complex pancreatic cyst, though slow progressive growth is somewhat atypical, 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 Pt underwent EUS on 07/26, pathology with no malignant cells. Pt's diarrhea resolved. Pt also had recurrent syncopal episodes, vasovagal vs psychogenic. Cardio, neuro, and psych were consulted. Per cardio, no structural heart disease, no arrhythmia, recommended loop monitor and tilt table outpatient. Head CT was negative. Subsequent MRI of brain negative for acute process, did show nonspecific mild scattered white matter signal changes which may be due to chronic microangiopathy. Unlikely seizures, EEG was negative. Pt's symptoms were thought to be anxiety related, zoloft increased, gabapentin restarted. CT of thorax showed chronic appearing changes, no suspicious pulmonary nodules or pulmonary mass lesion. Chest xr showed mild patchy opacities along the perihilar region extending to the lung bases, likely representing atelectasis, slight increase in central vascular volume compared to prior. Echo showed normal left ventricular systolic function with estimated EF of 60-64%, right ventricular systolic function normal, aortic valve sclerosis without evidence of stenosis. Pt was [facility]c [facility] a [facility] facility but left AMA. Pt reports ongoing abdominal pain and diarrhea (15 episodes per day). Pt reports that he is unable to eat solid food and has been drinking Ensure. He is taking creon, will send. He is going to be following up with GI, waiting for an appointment. Will check into possible further assessment by cardiology and neurology after reading all documents. Denies fever, chills, chest pain, shortness of breath, and N/V. Still reviewing pt's 77 pages of documentation. He does report oily type BMs without blood. [facility] Medical History COPD (chronic obstructive pulmonary disease) DDD (degenerative disc disease), cervical HTN (hypertension) Smoker Surgical History History of back surgery History of carpal tunnel surgery History of knee surgery History of laparoscopic cholecystectomy History of neck surgery Family History Father No problems noted. Mother Heart disease Pulmonary embolism History of heart attack Pacemaker Oxygen dependent Brother No problems noted. Brother No problems noted. Brother No problems noted. Sister No problems noted. Sister No problems noted. Daughter No problems noted. Daughter No problems noted. Social History Alcohol intake: current Alcohol intake frequency: a few times a week Patient Tobacco Use Status: Current everyday Tobacco user Tobacco use type: Cigarette Years Smoked: 55 Second Hand Smoke Exposure: Yes Substance Use Type: Amphetamines and Crack/Cocaine Current occupational status: employed Cognitive needs: No Hearing needs: No Vision needs: No Review of Systems Const Reports as per HPI Physical exam (Primary Care) Vital Signs: Last Vital Signs Pulse 72 08/16/22 10:39 BP 150/88 H 08/16/22 10:39 Pulse Ox 96 08/16/22 10:39 Oxygen Delivery Method Room Air 08/16/22 10:39 BMI result Body Mass Index 28.7 Tobacco/Smoking Status: Tobacco use Status Tobacco use date assessed 08/16/22 08/16/22 10:52 Patient Tobacco Use Status Current everyday Tobacco 08/16/22 10:52 Tobacco use type Cigarette 08/16/22 10:45 Const General: cooperative Orientation/consciousness: patient oriented x3 Resp Effort & Inspection: normal respiratory effort Auscultation: wheezes throughout Cardio Rate: regular rate Rhythm: regular rhythm Heart sounds: S1 normal heart sound present and S2 normal heart sound present GI Other: minimal discomfort with palpation of abd, bs present Neuro Other: tremors noted General: patient oriented x3 Psych Appearance: grossly normal Mental Status: mental status grossly normal Speech and movement: Normal speech and movement present Affect: Anxious affect present Attitude: cooperative Thought process: Normal thought process present Thought content: Normal thought content present Insight: Good insight present (Psych) Judgement: Good judgement present (Psych) Assessment and Plan Assessment & Plan (1) Unresponsiveness: Code(s): R41.89 - Other symptoms and signs involving cognitive functions and awareness (2) Pancreatic cyst: Code(s): K86.2 - Cyst of pancreas (3) Pancreatitis: Code(s): K85.90 - Acute pancreatitis without necrosis or infection, unspecified (4) COPD (chronic obstructive pulmonary disease): Code(s): J44.9 - Chronic obstructive pulmonary disease, unspecified (5) Anxiety: Code(s): F41.9 - Anxiety disorder, unspecified Plan The patient agreed to the use of a medical or surgical instrument maker for this encounter. Scribed for MARITO Mcintyre by Carissa Pettit medical or surgical instrument maker, on 08/16/2022 at 11:10 EST. Medications: New [id number] 6,000-19,000 -30,000 unit (Creon) do not exceed 10,000 unit/kg lipase per 24 hrs 6.79449 caps PO TID 624 caps 0RF 30 days Changed From sertraline 150 mg (1.5 x 100 mg) PO DAILY 135 tabs 1RF To sertraline 200 mg (2 x 100 mg) PO DAILY 60 tabs 1RF 30 days Refilled pantoprazole 40 mg PO DAILY 90 tabs 1RF metoprolol succinate ER 25 mg PO DAILY 90 tabs 1RF Coding Level of Care Code Est Pt Level 4 (11800) Diagnoses Unresponsiveness R41.89 Pancreatic cyst K86.2 Pancreatitis K85.90 COPD (chronic obstructive pulmonary disease) J44.9 Anxiety F41.9
== END 2022-08-16 15:21 | disposition home or self-care (01) ==
PROVIDERS: PCP Nurse Practitioner Family; Visit Provider Nurse Practitioner Family
DX: R41.89 Other symptoms and signs involving cognitive functions and awareness (principal); K86.2 Cyst of pancreas; J44.9 Chronic obstructive pulmonary disease, unspecified; F41.9 Anxiety disorder, unspecified; K85.90 Acute pancreatitis without necrosis or infection, unspecified
CPT/HCPCS: 99214